=== PATIENT | female | born 1960 | race Two or more races ===

== ENCOUNTER 2019-10-16 07:00 | Inpatient (IN) | payer OTHER ==
[~2019-10-16] VITALS: Ht 152.4 cm; Wt 98.4 kg
[2019-11-15] MEDS ORDERED: SYNTHROID100 MCG ORAL (15:07)
[2019-11-15] MEDS ORDERED: CYTOMEL5 MCG ORAL (15:07)
[2019-11-15] MEDS ORDERED: AMLODIPINE BESYL5 MG ORAL (15:08)
[2019-11-15] MEDS ORDERED: OMEPRAZOLE40 M1 ORAL (15:12)
[2019-11-15] MEDS ORDERED: HYDROXYCHLOROQ200 M1 PO (15:13)
[2019-11-15] MEDS ORDERED: VITAMIN D325 GM MC (15:15)
[2019-11-16] VITALS (18 sets, daily range): BP systolic 83–136; BP diastolic 56–80
[2019-11-16] MEDS ORDERED: Succinylcholine 20mg/ml 10ml vial ONE (06:24)
[2019-11-16] MEDS ORDERED: Rocuronium Bromide 100mg/10ml Inj IV ONE (06:24)
[2019-11-16] MEDS ORDERED: Midazolam 2mg/2ml Inj ONE (06:25)
[2019-11-16] MEDS ORDERED: fentaNYL 100 mcg/2 mL IV ONE (06:25)
[2019-11-16] MEDS ORDERED: Lidocaine 1% MPF 10mg/ml 5ml ONE (06:28)
[2019-11-16] MEDS ORDERED: Phenylephrine 10mg/ml Vial ONE (06:41)
[2019-11-16] MEDS ORDERED: Vancomycin 1gm vial IVPB ONE (06:42)
[2019-11-16] MEDS ORDERED: Gelfoam Size TOPIC ONE (06:43)
[2019-11-16] MEDS ORDERED: Bacitracin 50000 Units Vial ONE (06:43)
[2019-11-16] MEDS ORDERED: Thrombin 5000 units TOPIC ONE (06:43)
[2019-11-16] MEDS ORDERED: Sterile Water Irrig 1000ml IRRIG ONE (07:00)
[2019-11-16] MEDS ORDERED: LR 1000ml ONE (07:00)
[2019-11-16] MEDS ORDERED: ceFAZolin sod 2 GM in NS 55 ML IVPB ONE (07:00)
[2019-11-16] MEDS ORDERED: NS Irrig 1000ml ONE (07:00)
[2019-11-16] MEDS ORDERED: propofoL 1,000mg/100ml IV ONE (07:00)
--- NOTE | 2019-11-16 07:20 | Pre-Procedure Note/Attestation ---
Pre-Procedure Note/Attestation Complete Prior to Procedure Planned Procedure: not applicable Procedure Narrative: Anterior cervical discectomy and fusion of C56 and C67 Indications for Procedure Pre-Operative Diagnosis: herniation C56,67 Attestation I attest that I discussed the nature of the procedure; its benefits; risks and complications; and alternatives (and the risks and benefits of such alternatives ), prior to the procedure, with the patient (or the patient's legal medical detail representative). I attest that, if there was a reasonable possibility of needing a blood transfusion, the patient (or the patient's legal medical detail representative) was given the [facility] standardized written summary, pursuant to the Gerardo Tiffani Blood Safety Act ([place] Health and Safety Code # 1645, as amended). I attest that I re-evaluated the patient just prior to the surgery and that there has been no change in the patient's H&P, except as documented below: Richardson Hidalgo MD Nov 16, 2019 07:20
--- NOTE | 2019-11-16 07:21 | Brief Operative Note ---
Immediate Post Operative Note Operative Note Chief Complaint: neck pain and radiculopathy Pre-op Diagnosis: herniation C56,67 Procedure: Anterior cervical discectomy and fusion of C56 and C67 Post-op Diagnosis: same as pre-op Findings: consistent w/pre-op dx studies Surgeon: Gwen Jig And Fixture Builder Apprentice: Marlo Anesthesiologist: CRISS Anesthesia: general Specimen: none Complications: none Condition: stable Fluids: IVF Estimated Blood Loss: minimal Drains: none Implant(s) used?: Yes - nuvasive interlock c sz6 x2, screws 12mmx6 Richardson Hidalgo MD Nov 16, 2019 07:21
[2019-11-16] MEDS ORDERED: Naloxone 0.4mg/ml Inj IVP PRN (07:30)
[2019-11-16] MEDS ORDERED: Metoclopramide 10mg/2ml Inj IVP PRN ×2 (07:30→08:45)
[2019-11-16] MEDS ORDERED: Morphine Sulfate 2mg/ml Inj(IV/IM USE ONLY) IV PRN (07:30)
[2019-11-16] MEDS ORDERED: Milk of Magnesia 30ml Ud ORAL PRN (07:30)
[2019-11-16] MEDS ORDERED: HYDROcodone/Acetamin 5/325 tab ORAL PRN (07:30)
[2019-11-16] MEDS ORDERED: Morphine Sulfate 4mg/ml Inj (IV USE ONLY) IV PRN ×2 (07:30)
[2019-11-16] MEDS ORDERED: Chloraseptic Spray 20mL Bottle ORAL PRN (07:30)
[2019-11-16] MEDS ORDERED: HYDROmorphone 1mg/ml Carpuject IVP PRN (07:30)
[2019-11-16] MEDS ORDERED: HYDROcodone/Acetamin 7.5/325 tab ORAL PRN (07:30)
[2019-11-16] MEDS ORDERED: ePHEDrine 50mg/ml Inj ONE (07:43)
[2019-11-16] MEDS ORDERED: Sodium Chloride 10ml vial INJ ONE ×2 (07:43→08:32)
[2019-11-16] MEDS ORDERED: Vancomycin 1 GM in NS 275 ML IVPB ONE (08:30)
[2019-11-16] MEDS ORDERED: Acetaminophen (Non formulary) 100 ML IV ONE (08:30)
[2019-11-16] MEDS ORDERED: Morphine Sulfate 10mg/ml Inj ONE (08:30)
[2019-11-16] MEDS ORDERED: LR 1000ml 1,000 ML IVLG SCH (08:40)
--- NOTE | 2019-11-16 08:40 | Anethesia Preoperative Eval ---
Anesthesia Pre-op PMH/ROS General Date of Evaluation: Nov 16, 2019 Time of Evaluation: 06:52 Anesthesiologist: Melvin ASA Score: ASA 3 Mallampati Score Class I : Soft palate, uvula, fauces, pillars visible Class II: Soft palate, uvula, fauces visible Class III: Soft palate, base of uvula visible Class IV: Only hard plate visible Mallampati Classification: Class II Surgeon: Gwen Diagnosis: Cervical radiculopathy Surgical Procedure: ACDF Anesthesia History: PONV Family History: no anesthesia problems Allergies: Coded Allergies: No Known Allergies (Unverified , 11/16/19) Medications: see eMAR Patient NPO?: Yes Past Medical History Cardiovascular: Reports: HTN; Denies: CAD, MO, valve dz, arrhythmia, other Pulmonary: Reports: LUCI; Denies: asthma, COPD, other Gastrointestinal/Genitourinary: Reports: GERD; Denies: CRI, ESRD, other Neurologic/Psychiatric: Reports: other - chronic pain; Denies: dementia, CVA, depression/anxiety, TIA Endocrine: Reports: hypothyroidism; Denies: DM, steroids, other HEENT: Denies: cataract (L), cataract (R), glaucoma, KEWEENAW (L), KEWEENAW (R), other Hematology/Immune: Denies: anemia, DVT, bleeding disorder, other Musculoskeletal/Integumentary: Reports: OA Other: obesity PMH Narrative: as above PSxH Narrative: Thyroidectomy Anesthesia Pre-op Phys. Exam Physician Exam Last Vital Signs Date Time Temp Pulse Resp B/P (MAP) Pulse Ox O2 Delivery O2 Flow Rate FiO2 11/16/19 06:08 97.2 66 18 136/75 (95) 97 11/16/19 06:08 Room Air Constitutional: NAD Neurologic: CN 2-12 intact Cardiovascular: RRR, no M/R/G Respiratory: CTA Gastrointestinal: other - obesity Airway Exam Mallampati Score: Class II MO: full Neck: stiff ROM: limited Teeth: missing Dentures: no upper, no lower Anesthesia Pre-op A/P Labs see chart Studies Pre-op Studies: EKG - NSR, CXR - WNL, echo - 55-60% Risk Assessment & Plan Assessment: ASA 3 Plan: GA with ETT neuromonitoring Status Change Before Surgery: No Pre-Antibiotics Drug: Vancomycin 1gr Given Within 1 Hr of Incision: Yes Time Given: 07:55 Eduar Charles MD Nov 16, 2019 08:40
[2019-11-16] MEDS ORDERED: DiphenhydrAMINE 50mg/ml Inj IVP PRN (08:45)
[2019-11-16] MEDS ORDERED: Ketorolac 30mg Inj IV PRN (08:45)
[2019-11-16] MEDS ORDERED: Hydromorphone 0.5mg/0.5ml inj IVP PRN (08:45)
[2019-11-16] MEDS ORDERED: Glycopyrrolate 0.2mg/ml 1ml Vial ONE (08:53)
[2019-11-16] MEDS ORDERED: Neostigmine 1mg/ml 10ml Inj ONE (08:53)
--- NOTE | 2019-11-16 10:01 | Immediate Post-Op Evaluation ---
Immediate Post-Op Evalulation Immediate Post-Op Evalulation Procedure: ACDF C5 toC7 Date of Evaluation: Nov 16, 2019 Time of Evaluation: 10:00 IV Fluids: 700 Blood Products: none Estimated Blood Loss: 50 Urinary Output: 150 Blood Pressure Systolic: 98 Blood Pressure Diastolic: 56 Pulse Rate: 72 Respiratory Rate: 20 O2 Sat by Pulse Oximetry: 99 Temperature (Fahrenheit): 97.6 Pain Score (1-10): 2 Nausea: No Vomiting: No Complications none Patient Status: reacts, patent, extubated, none Hydration Status: adequate Eduar Charles MD Nov 16, 2019 10:01
--- NOTE | 2019-11-16 11:30 | NUR ---
NURSE NOTES: patient was transferred from OR after surgery via hospital bed. sleeping. ADCF C5-6,6-[address] Hidalgo. no respiratory distress noted on room air. easily awake to name. IV on RAC 18. intact. belongings at OR. PT eval. dressing on neck with derma mak. no bleeding noted. VS 97/60,HR 82, RR18, T97.98. O2 95% on room air. bed in the lowest position and locked. call light within reach. will continue to provide plan of care. Addendum: 11/16/19 at 1258 by KYLE DE JESUS RN received report from JOSEPH Skelton,OR
[2019-11-16] MEDS: NS w/KCl 20mEq 1000ml 1,000 ML IV SCH ×2 (12:40→22:58)
--- NOTE | 2019-11-16 14:07 | NUR ---
PT EVALUATION NOTE Patient seen for initial evaluation and treatment initiated. Patient presents with pain and generalized weakness s/p cervical surgery. Patient instructed in cervical precautions and log roll technique for in/OOB. Patient required min assist to come to sitting position at the EOB. Patient c/o dizziness in sitting and unable to keep her eyes open. Attempted to stand however patient unable to stand due to c/o dizziness. Patient will benefit from skilled inpatient PT intervention to address balance and mobility for improved level of function with adherence to spinal precautions. Anticipate discharge home once medically cleared by MD. No DME needs identified at this time. Addendum: 11/16/19 at 1408 by JUAN CARLOS DURHAM PT Amended: Links added.
--- NOTE | 2019-11-16 14:09 | Diagnostic Imaging Report ---
XRAY C Spine 2-3v CLINICAL HISTORY: Neck pain. Cervical fusion. COMPARISON: None FINDINGS: Fluoroscopy independent procedure performed for cervical fusion. 26.6 seconds of fluoroscopy time utilized by the ordering physician. Total cumulative dose is 4.46 mGy and 0.43761 Gy.cm2. Total of 5 spot images are obtained . IMPRESSION: FLUOROSCOPY GUIDED PROCEDURE.
--- NOTE | 2019-11-16 15:59 | NUR ---
CASE MANAGEMENT: INITIAL REVIEW 59YR OLD FEMALE HERE FOR SCHEDULE SURGERY CC:NECK PAIN SI:NECK PAIN AND RADICULOPATHY . ANTERIOR CERVICAL HERNIATED 97.2 66 18 136/75 97% ON RA IS:IN SURGERY NOW ANTERIOR CERVICAL DISCECTOMY AND FUSION OF C56 AND C67 \: 3E MED SURG UNIT DCP: HOME WHEN STABLE PLAN: IV HYDRATE SCD'S MONITOR FOR FEVERS CONTROL PAIN ADVANCE DIET TOLERATED PT EVAL AND THERAPY RECOMMENDATION
--- NOTE | 2019-11-16 16:45 | Operative Note - Dictated ---
DATE OF OPERATION: 11/16/2019 SURGEON: Richardson Hidalgo MD, orthopedic spine surgeon. STOCK SUPERVISOR: ROSALVA Bagley. PREOPERATIVE DIAGNOSES: 1. Intractable neck pain. 2. Radiculopathy. 3. Herniation, C5-C6, C6-C7. 4. Neural foraminal stenosis C5-C6, C6-C7. 5. Stenosis. POSTOPERATIVE DIAGNOSES: 1. Intractable neck pain. 2. Radiculopathy. 3. Herniation, C5-C6, C6-C7. 4. Neural foraminal stenosis C5-C6, C6-C7. 5. Stenosis. PROCEDURE PERFORMED: 1. Anterior cervical discectomy and fusion of C5-C6 using Nuvasive Interlock Cage, size 6 a total of three 13 mm screws, with the insertion of 1 mL of allograft Osteocel bone. 2. Anterior cervical discectomy and fusion of C6-C7 using Nuvasive Interlock Cage, size 6 a total of three 13 mm screws, with the insertion of 1 mL of allograft Osteocel bone. 3. Motor evoked potential monitoring. 4. Somatosensory evoked potential monitoring. 5. Supervision and interpretation of fluoroscopy. 6. Use of intraoperative microscope. COMPLICATIONS: None. ANESTHESIA: General. ESTIMATED BLOOD LOSS: Less than 100 mL. INDICATIONS FOR SURGERY: This patient is a 59-year-old female who has a history of intractable neck pain, radiculopathy, herniation, C5-C6, C6-C7, neural foraminal stenosis C5-C6, C6-C7, stenosis. We tried a course of conservative management but despite this course there was still a significant component of persistent, recalcitrant neck pain and arm pain. The MRI demonstrated significant neural foraminal compromise secondary to disc herniations at C5-C6, C6-C7. We had a long discussion with Heide regarding the risks and benefits of surgery. Our discussion included but was not limited to nonoperative management, chiropractic management, another epidural steroid injection as well definitive management in the form of surgery. We recommended an anterior cervical discectomy and fusion of C5-C6, C6-C7 as final definitive management. We reviewed the risks and benefits of surgery with the patient. Our discussion included a comprehensive review of the clinical issues and the nature of the clinical decision. We reviewed the alternatives, including doing nothing. The patient elected to proceed accordingly with anterior cervical discectomy and fusion of C5-C6, C6-C7.We had a long discussion regarding the risks, alternatives and benefits of surgery. Our description of the risks included a discussion in person as well as a signed consent which detailed all pertinent risks from the procedure itself. Briefly, our discussion included but was not limited to infection, bleeding, pseudarthrosis, spinal cord injury, neurovascular injury, dural tear, CSF leak, neuropathy, paralysis, permanent weakness/drop foot/drop arm, paresthesias, blindness, palsy and weakness. The patient understood there may be a need for a revision surgery or additional procedures. Approach-related complications including dysphonia, dysphagia, blindness, permanent vocal cord and neural injury, hematoma, swallowing and breathing difficulty. Medical complications were reviewed including liver, kidney, shock, cardiopulmonary failure, anesthesia complications including , swelling, damage to the musculature, larynx/voice injury or loss, esophagus/throat, trachea, blood vessels and muscles/muscular sprain and lungs/pneumothorax during this surgical procedure; injury to deeper structures may be temporary or permanent. After this review of risks, the patient understood these and elected to proceed. A written and verbal consent was given. We discussed the pros and cons of all the alternatives. We discussed the uncertainties associated with the decision. Afterwards I assessed the patient's understanding and explored their preferences. All questions were answered and no guarantees were given. Medical clearance was obtained prior to surgery. INTRAOPERATIVE FINDINGS: At C5-C6: The disk itself was soft and spongy and of appropriate height. There was no desiccated aspects or crumbled nature to the disc itself. There were no anterior osteophytes or bone spurs anteriorly or posteriorly. The disk was not collapsed. Upon resection of the disk, I located a radial tear in the posterior longitudinal ligament posteriorly. This tear was probed with a micro-set 1-B curette. It gave rise to a herniated fragment of nucleus pulposus tissue, which was encroaching on the neural foramina right more than left sided. The radial tears were right and left sided; however, more prominent larger tear noted on the right side. There was significant neural foramen stenosis that was more prominent on the right side. At C6-C7: This disk was collapsed. There was an anterior osteophyte at C6-C7 on the endplate anteriorly. There were no posterior osteophytes at this level. The disk itself was desiccated and upon resection of the disk, I noted radial tears in the posterior longitudinal ligament on the right side. This was probed with a micro-set 1-B curette and it gave rise to a nucleus pulposus fragment, which was sitting in the neural foramina. There was neural foramen stenosis bilaterally predominantly right sided. DESCRIPTION OF PROCEDURE: Under the benefit of general endotracheal anesthesia and with the assistance of the entire operative team, the patient was moved from the rkersey onto the operative table in the supine position. The head was secured and carefully positioned appropriately. Bilateral arms were secured with Gelpads and foam and all bony prominences were padded. For the bilateral lower extremities SCD and KIARA hose were placed for DVT prophylaxis. A surgical timeout was called which corroborated our planned procedure of Anterior cervical discectomy and fusion of C5-C6, C6-C7. Preoperative antibiotics were administered within 30 minutes of the incision for antibiotic prophylaxis. Using lateral fluoroscopic radiography, the operative levels were delineated. Next the wound was prepped and draped with Chlorhexidine and sterile drapes. An incision was based on lateral fluoroscopy and we centered our incision at the C5-C6, C6-C7 interspace and next using a standard Rebolledo-Mobley anterior based approach the incision was taken down through the skin and subcutaneous tissues until the vertebral bodies and their corresponding disc spaces were visualized. A needle was placed into the interspace to confirm placement of the operative interspace and we performed the remainder of procedure under microscopic visualization. Next, using a bipolar and Bovie cautery to ensure meticulous hemostasis, the longus colli was mobilized bilaterally and retractors were placed deep to the longus colli bilaterally to address retraction. Next we turned our attention to the radical anterior discectomy. This was initially performed at C5-C6. First by using a 15 blade scalpel followed by narrow pituitaries and a micro-sect 5-B curette was used to denude the endplate of all cartilaginous tissue. Next using a Midas Arik AM8 drillbit the vertebral endplates were denuded in a [id number] and layer by layer fashion, and ultimately the posterior uncinate joints bilaterally and posterior osteophytic lips and margins causing central and lateral impingement were carefully denuded until visualization of the posterior longitudinal ligament was possible. An endplate preparation was performed in the exact same fashion using an intervertebral pathology laboratory aide, sequential distraction was obtained throughout the disc space. We saw a tear/rent in the PLL and this was carefully mobilized and dissected using a micro-set 1-B curet until we visualized a broad-based disc herniation with compression of the spinal cord as well as neural foramina which was right more than left sided. This neural foraminal compression was carefully resected using a Kerrison-1 and Kerrison-2 rongeurs until complete decompression of the spinal cord was visualized and complete decompression of the neural foramina and nerve root therein as well as the axilla and lateral margin of the nerve root was visualized and subsequently completely decompressed. The family was notified at one hour intervals throughout the procedure to provide for consistent updates. Next we turned our attention to the radical anterior discectomy at the C6-C7 level. First by using a 15 blade scalpel followed by narrow pituitaries and a micro-sect 5-B curette was used to denude the endplate of all cartilaginous tissue. Next using a Stalk[employer] Arik AM8 drillbit the vertebral endplates were denuded in a [id number] and layer by layer fashion, and ultimately the posterior uncinate joints bilaterally and posterior osteophytic lips and margins causing central and lateral impingement were carefully denuded until visualization of the posterior longitudinal ligament was possible. An endplate preparation was performed in the exact same fashion using an intervertebral pathology laboratory aide, sequential distraction was obtained throughout the disc space. We saw a tear/rent in the PLL and this was carefully mobilized and dissected using a micro-set 1-B curet until we visualized a broad-based disc herniation with compression of the spinal cord as well neural foramina which was right more than left sided. This neural foraminal compression was carefully resected using a Kerrison-1 and Kerrison-2 rongeurs until complete decompression of the spinal cord was visualized and complete decompression of the neural foramina and nerve root therein as well as the axilla and lateral margin of the nerve root was visualized and subsequently completely decompressed. We next turned our attention towards trialing our implant within the C56 disc space. We initially tried size 5 and afterwards size 6 trial from the Nuvasive Interlock Cage, size 6 a total of three 13 mm screws, with the insertion of 1 mL of allograft Osteocel bone at each level, which appeared to be appropriate under AP and lateral fluoroscopy as well as in terms of its height, depth, width and lack of toggle. The PEEK polyetheretherketone interbody cages were then both packed with allograft bone from Osteocel and local autograft bone matrix. Next these were then carefully advanced and secured into their intervertebral spaces under direct visualization and with supervision of AP and lateral fluoroscopic views. We next turned our attention towards plating. Plating was performed with Nuvasive Interlock Cage, size 6 a total of three 13 mm screws, with the insertion of 1 mL of allograft Osteocel bone. A total of three screws, size 13 mm in length were inserted and confirmed under AP and lateral fluoroscopy and confirmed to be in excellent position. This was then performed at the next level, C6-C7. Plating was performed with Nuvasive Interlock Cage, size 6 a total of three 13 mm screws, with the insertion of 1 mL of allograft Osteocel bone. A total of three screws, size 13 mm in length were inserted and confirmed under AP and lateral fluoroscopy and confirmed to be in excellent position. After a finger sweep we confirmed removal of all sponges. The retractor was removed and we next turned our attention to meticulous hemostasis with FloSeal and bipolar cautery. After the sponge and needle count was again found to be correct with our second count, we next turned our attention to closure. The wound was again copiously irrigated with antibiotic impregnated saline. Closure consisted of 4-0 clear nylon for the platysma, and 6-0 clear nylon for the superficial skin. Final skin closure and dressings consisted of Dermabond. Prior to final closure, a final radiograph was obtained which demonstrated the hardware is intact with excellent position throughout. The patient tolerated the procedure well. The patient was carefully extubated after the conclusion of surgery. We discussed the findings of the surgery with the family upon completion of the case. At this point the patient was transferred to the spine floor for further observation. Richardson Hidalgo M.D. DR: ARTEMIO JOB#: [id number] CC: EVELIO
--- NOTE | 2019-11-16 17:11 | NUR ---
NURSE NOTES: Spoke to regarding discharge and ok to discharge patient tomorrow 11/17/2019 after physical therapy. Order noted and carried out.
[2019-11-16] MEDS: Docusate Sod/Senna tab ORAL SCH (17:21)
[2019-11-16] MEDS: Docusate 100mg cap ORAL SCH (17:21)
[2019-11-16] MEDS: Vancomycin 1 GM in D5W 275 ML IVPB SCH (17:21)
--- NOTE | 2019-11-16 19:20 | NUR ---
NURSE NOTES: Received report from alek lujan. patient is on bed, with empty basin on the bedside. patient complaints of nausea. head of bed elevated. basin and napkins within easy reach. iv line on the right ac, running NS + 20 meq @ 100 ml/hr. on o2 cannula at 4 lpm. with intact dressing on the neck with derma mak. with minimal complaints of pain on the site. per patient " its tolerable and she doesn't need pain medicine at the moment". tai gaston states " the patient is for discharge tomorrow". bed locked and in lowest position. call light and light button within easy reach. will continue plan of care.
--- NOTE | 2019-11-16 19:20 | NUR ---
NURSE NOTES: Patient ambulated to bathroom and voided yellow urine. No complain of discomfort at this time. Will continue to monitor.
--- NOTE | 2019-11-16 19:29 | NUR ---
HAND-OFF: Report given to JOSEPH Mcgee.
--- NOTE | 2019-11-16 20:30 | NUR ---
NURSE NOTES: patient complaints of nausea. administered zofran as ordered.head of bed elevated. basin and napkins within easy reach. charge nurse made aware. Addendum: 11/17/19 at 0650 by Ashley Sosa RN patient had 1 episode vomiting; clear to light red in color. patient had a jello during dinner.
[2019-11-17] VITALS (17 sets, daily range): BP systolic 97–149; BP diastolic 52–79
--- NOTE | 2019-11-17 05:00 | NUR ---
NURSE NOTES: patient able to ambulate to the bathroom with assistance. no c/o dizziness or pain
[2019-11-17] MEDS: Vancomycin 1 GM in D5W 275 ML IVPB SCH (05:57)
--- NOTE | 2019-11-17 07:33 | NUR ---
NURSE NOTES: Report received from Arely RUIZ, rounds made. Patient resting in high fowlers position in bed, AOX4, calm. No distress on O2 4LNC, respirations even/unlabored, denies SOB. Anterior neck, surgical site, dermabond CDI, no redness/swelling noted, will change ice pack. Pain to surgical site/with swallowing 5/10, will medicate as ordered. Appetite fair, no NV. IV Vancomycin infusing to RAC, site slightly bloody surrounding insertion site, no leaking noted. Bilateral SCDs on, encouraged IS, ankle rotation. Neuros intact, CMS +, skin warm, wiggles, pulses palpable, no NT, hand grasps/pedal pushes equal/strong 5/5. Plan for PT evaluation and discharge today, patient aware. Call light in reach, bed in lowest position, will continue to monitor.
--- NOTE | 2019-11-17 07:38 | NUR ---
HAND-OFF: Report given to carmine barrios rn. patient is awake. not in any form of respiratory distress.plan of care endorsed
[2019-11-17] MEDS: Docusate 100mg cap ORAL SCH ×2 (08:21→17:14)
[2019-11-17] MEDS: HYDROcodone/Acetamin 7.5/325 tab ORAL PRN ×2 (08:21→15:32)
[2019-11-17] MEDS: Docusate Sod/Senna tab ORAL SCH ×2 (08:21→17:14)
[2019-11-17] MEDS: NS w/KCl 20mEq 1000ml 1,000 ML IV SCH ×2 (08:56→21:55)
--- NOTE | 2019-11-17 09:15 | 48 Hour Post Anesthesia Eval ---
Post Anesthesia Evaluation Procedure: ACDF C5 toC7 Date of Evaluation: Nov 17, 2019 Time of Evaluation: 09:14 Blood Pressure Systolic: 102 0: 59 Pulse Rate: 69 Respiratory Rate: 20 Temperature (Fahrenheit): 98.9 O2 Sat by Pulse Oximetry: 97 Airway: patent Nausea: No Vomiting: No Pain Intensity: 2 Hydration Status: adequate Cardiopulmonary Status: Stable Follow-up Care/Observations: 0 Post-Anesthesia Complications: 0 Follow-up care needed: N/A Abdon Jernigan MD Nov 17, 2019 09:15
--- NOTE | 2019-11-17 13:05 | NUR ---
PT NOTE Attempted to see patient for PT treatment. Per Bianca RUIZ patient c/o chest pain, PT treatment deferred at this time, will follow.
--- NOTE | 2019-11-17 15:15 | NUR ---
NURSE NOTES: Patient complains of chest pain 1-08/07, mid chest, squeezing like pain at times, comes and goes, also mild nausea that would subside on its own, as well as a frontal head aching pain 06/09. Vitals stable, T97.3 P60 RR18 BP 125/70, 96% on O2 3LNC. Patient alert, oriented, calm, sitting in chair. Dr. Hidalgo and Dr. Reich notified, orders for STAT EKG, results reported to Dr. Reich, order received for STAT Troponin. Denies need for Zofran at this time, provided lemon confederated salish soda. Patient updated, verbalized understanding. Will continue to monitor.
--- NOTE | 2019-11-17 16:02 | NUR ---
NURSE NOTES: Received orders from Dr. Reich to transfer patient to [facility]. Contreras LUGO notified. Will update patient as soon as bed available.
--- NOTE | 2019-11-17 16:30 | NUR ---
NURSE NOTES: Dr. Reich notified of Troponin critical value 2.982. Orders received for STAT EKG repeat, Nitro paste 1 inch BID, Metoprolol 12.5 BID. Patient and spouse (at bedside) updated, verbalized understanding. Addendum: 11/17/19 at 1807 by Bianca Mariscal RN Cardiology called for STAT repeat EKG.
[2019-11-17] MEDS ORDERED: Nitroglycerin 2% oint pkt TOPIC SCH (17:00)
[2019-11-17] MEDS ORDERED: Metoprolol Tartrate 12.5mg TAB ORAL SCH (17:00)
--- NOTE | 2019-11-17 17:00 | Discharge Summary ---
DATE OF ADMISSION: 11/16/2019 DATE OF DISCHARGE/TRANSFER: 11/18/2019 REASON FOR ADMISSION: Herniated nucleus pulposus. PROCEDURE PERFORMED DURING ADMISSION: Anterior cervical diskectomy and fusion. ICU Stay HOSPITAL COURSE/TREATMENT RENDERED: ICU management Therapy Cardiac consultation and treatment DISCHARGE PHYSICAL EXAM: 1. Patient was ambulating with and without the assistance of physical therapy. 2. Prior to discharge home incision was clean and dry with minimal swelling. 3. Follows commands. 4. Alert and oriented. 5. Hoffman discontinued, voiding. 6. Incentive spirometer at bedside. 7. IVF hep locked. MOTOR: Demonstrates expected postoperative bulk and tone. Moves biceps, triceps, and deltoid musculature on command. Moves hip flexors, quadriceps, tibialis anterior, EHL, gastrocsoleus musculature on command as well. TREATMENT RENDERED: 1. Daily nursing care. 2. Physical Therapy. 3. Occupational Therapy. 4. Intravenous medications. 5. Oral medications. 6. Daily postoperative examinations by Spine surgery team. 7. Cardiac consultation 8. Daily exam by her do all operator On Wednesday at approximately 2:03pm I was informed Heide complained of a mild chest pain. I was asked if we were clear to discharge her. I was operating at [facility] all day Wednesday when I was informed and I recommended they hold the discharge, obtain a STAT EKG and notify Dr. Lake to complete the chest pain workup. His workup noted elevated cardiac enzymes and Cardiology was consulted along with the administration of Beta Blockers. We decided to obtain a STAT Cervical MRI to rule out the presence of a hematoma prior to transfer to a Cardiac facility in the setting where blood thinners may be warranted. She was transferred to the ICU where I examined her at 945pm 11/17/19. CONDITION OF PATIENT ON DISCHARGE: The condition on discharge is guarded for transfer to the Cardiac team. DISCHARGE INSTRUCTIONS: Our specific instructions relating to physical activity, medications diet and follow-up care are detailed in our standard operative folder and were given to this patient prior to surgery. We will however summarize these briefly as stated below. Regarding physical activity we would like the patient to limit their flexion, extension and rotation. We also require a limitation on their bending lifting and twisting. All medication has been called in prior to surgery to their pharmacy of choice. They can resume their regular diet once tolerated. We would like them to shower and limit soaking the wound in a tub/Jacuzzi/the ocean for a period of one month or until the incision is completely healed. We will have them follow up in our office in three weeks time for their regularly scheduled appointment. They understand to call our office tomorrow to schedule the time for their three week followup appointment. The patient will notify us should they experience any increase in the severity of pain, redness/swelling/ or drainage from their incision. Richardson Hidalgo M.D. DR: ARTEMIO JOB#: [id number] CC: EVELIO
--- NOTE | 2019-11-17 17:35 | NUR ---
HAND-OFF: Report given to Benita HURST, patient stable. Addendum: 11/17/19 at 1812 by Bianca Mariscal RN Belongings reviewed with Benita, patient and spouse.
--- NOTE | 2019-11-17 17:35 | NUR ---
NURSE NOTES: Patient transferred to [facility] via bed on O2 3LNC, in stable condition. Patient AOx4, calm, spouse at bedside. HOB elevated. No complans of SOB at this time. Chest pain (ZENOBIA) 06/09. Nitro paste/patch applied to ZENOBIA prior to transfer, see eMAR. IVF reconnected upon transfer. Bilateral SCDs on. All belongings/extra IV bags/chart with prescription and CD and yellow packet sent with patient.
--- NOTE | 2019-11-17 17:45 | NUR ---
NURSE NOTES: RECEIVED PATIENT A/A/OX4, SPOUSE @ BEDSIDE. PERSONAL BELONGINGS NOTED. V/S TAKEN AND RECORDED. NO C/O PAIN/DISCOMFORT NOTED. HOB ELEVATED. O2 2L VIA NC. IV ACCESS PATENT AND INTACT, IVF INFUSING WELL IN RAC 18G. ABLE TOP UTILIZE IS W/A 10X. PATIENT UNABLE TO MOVE TO HAVE HER SURGICAL DRSG CHECK. PATIENT ABLE TO INTERACT AND ANSWERS QUESTIONS. PATIENT DOES NOT HAVE AN APPETITE FOR DINNER. KEPT BED IN THE LOWEST POSITION, SIDERAILS ARE UPX3. BRAKES AND SONJA ACTIVATED. CALL LIGHT WITHIN REACH. WILL CONT TO MONITOR.
--- NOTE | 2019-11-17 18:52 | Cardiology Progress Note ---
Assessment/Plan Assessment/Plan The patient has NSTEMI with troponin I of 2.9. She requires to be transferred to the higher level of care for cardiac catheterization. Objective Last 24 Hour Vital Signs Date Time Temp Pulse Resp B/P (MAP) Pulse Ox O2 Delivery O2 Flow Rate FiO2 11/17/19 17:45 97.5 65 18 133/69 (90) 97 11/17/19 17:15 97.3 68 20 142/79 (100) 96 11/17/19 17:15 68 142/79 11/17/19 17:15 142/79 11/17/19 16:00 97.7 58 20 124/69 (87) 97 11/17/19 13:09 97.3 60 18 125/70 (88) 96 11/17/19 12:00 98.2 61 18 114/66 (82) 98 11/17/19 09:15 69 20 97 11/17/19 09:00 Nasal Cannula 4.0 11/17/19 08:00 98.8 69 20 102/59 (73) 97 11/17/19 04:00 97.9 79 20 118/79 (92) 98 11/17/19 00:00 98.2 86 19 126/71 (89) 98 11/16/19 21:00 Nasal Cannula 4.0 11/16/19 20:00 97.9 84 19 117/80 (92) 98 Intake and Output 11/16/19 11/17/19 19:00 07:00 Intake Total 1583.3 ml 300 ml Output Total 200 ml Balance 1383.3 ml 300 ml IV Total 1583.3 ml 300 ml Output Urine Total 150 ml Estimated Blood Loss 50 ml # Voids 2 Laboratory Tests Test 11/17/19 15:45 Troponin I 2.982 ng/mL (0.000-0.056) Monroe Herbert MD Nov 17, 2019 18:52
[2019-11-17] MEDS ORDERED: Nitroglycerin Subl 0.4mg tab SL PRN ×2 (19:00→19:45)
--- NOTE | 2019-11-17 19:08 | NUR ---
HAND-OFF: Report given to naveen.
--- NOTE | 2019-11-17 19:10 | General Progress Note ---
Assessment/Plan Assessment/Plan: neck pain and radiculopathy herniation C56,67 Anterior cervical discectomy and fusion of C56 and C67 NSTEMI elevated troponin abnormal ECG hypertension PLAN cardiology noted appreciated nitrates and beta blockers consider transfer to cath facility if needed defer decision for anticoag to cardiology and spine guarded serial troponins and ECG impression, plan, and exam edited and reviewed in detail care discussed with RN Subjective Allergies: Coded Allergies: No Known Allergies (Unverified , 11/16/19) Subjective seen earlier called for chest pain had surgery yesterday troponin + ECG with noted new T wave inversions Objective Last 24 Hour Vital Signs Date Time Temp Pulse Resp B/P (MAP) Pulse Ox O2 Delivery O2 Flow Rate FiO2 11/17/19 17:45 97.5 65 18 133/69 (90) 97 11/17/19 17:15 97.3 68 20 142/79 (100) 96 11/17/19 17:15 68 142/79 11/17/19 17:15 142/79 11/17/19 16:00 97.7 58 20 124/69 (87) 97 11/17/19 13:09 97.3 60 18 125/70 (88) 96 11/17/19 12:00 98.2 61 18 114/66 (82) 98 11/17/19 09:15 69 20 97 11/17/19 09:00 Nasal Cannula 4.0 11/17/19 08:00 98.8 69 20 102/59 (73) 97 11/17/19 04:00 97.9 79 20 118/79 (92) 98 11/17/19 00:00 98.2 86 19 126/71 (89) 98 11/16/19 21:00 Nasal Cannula 4.0 11/16/19 20:00 97.9 84 19 117/80 (92) 98 Intake and Output 11/16/19 11/17/19 19:00 07:00 Intake Total 1583.3 ml 300 ml Output Total 200 ml Balance 1383.3 ml 300 ml IV Total 1583.3 ml 300 ml Output Urine Total 150 ml Estimated Blood Loss 50 ml # Voids 2 Laboratory Tests 11/17/19 15:45: Troponin I 2.982H Height (Feet): 5 Height (Inches): 0.00 Weight (Pounds): 204 Objective WDWN NAD clear breath sounds bilaterally without rhonchi or wheeze [id number] without MRG NABS nontender no HSM no CCE nonfocal Keegan Reich MD Nov 17, 2019 19:10
[2019-11-17] MEDS ORDERED: Gadavist 7.5mMol/7.5ml vial IV PRN ×2 (19:15→22:15)
--- NOTE | 2019-11-17 19:15 | NUR ---
NURSE NOTES: Report given by JOSEPH Joy- pt. to be transferred to ICU- STAT- transferred pt. to ICU Report given to JOSEPH Dominguez- pt. remains stable upon transfer and no signs of distress noted- aware to f/u with daughter as she is Korean speaking to let her know pt. has transferred.
--- NOTE | 2019-11-17 19:30 | NUR ---
NURSE NOTES: Received report from Capo RUIZ. patient from telemetry transferred to ICU via Yasmin bed accompanied by [address] Herbert with order to transfer pt to ICU pt has NSTEMI with troponin of 2.9, pt requires higher level of care for cardiac catheterization. Patient awake, alert oriented x4, able to verbalize needs in Malian and Sudanese. On 2L oxygen via N/C satting 98%. HOB elevated. dressing intact on tight neck with Dermabond dressing no bleeding.S/P anterior cervical spine diskectomy and fusion. Instructed patient to avoid touching the surgery site to prevent from opening or infection patient with good understanding. Denies any chest pain at this time. complained of 3/10 right neck pain but refused pain medication, ice pack helps at this time. SCD on bilateral leg intact. IV site on right AC intact infusing NS with KCL 20mEq at 100cc/hr. bed alarm on. bed lock and in low position. Negative x1 for COVID 19. bed alarm on. bed locked and in low position. will continue plan of care.
--- NOTE | 2019-11-17 19:55 | Cardiology Progress Note ---
Assessment/Plan Assessment/Plan I spoke with Dr. Mcnulty glycerin operator mission analyst at [facility] with an attempt to have cardiac cath done for this patient. Dr. Mcnulty states that in face of cervical diskectomy he would not proceed with the cardiac cath and would wait until later ( ? number of days at neurosurgery discretion) as long as the patient is hemodynamically stable. The patient will however remains to be guarded and will be transferred to [facility] once bed is available for close hemodynamic monitoring and in case emergency cath is required. I will, hence, send the patient to the ICU of this facility and will monitor closely. Trop I and ECG will be taken q 8 hours, no ASA or heparin/ lovenox at this time due to increased risk of bleeding into the cervical spine. Nitroglycerine tab as needed for chest pain. Objective Last 24 Hour Vital Signs Date Time Temp Pulse Resp B/P (MAP) Pulse Ox O2 Delivery O2 Flow Rate FiO2 11/17/19 17:45 97.5 65 18 133/69 (90) 97 11/17/19 17:15 97.3 68 20 142/79 (100) 96 11/17/19 17:15 68 142/79 11/17/19 17:15 142/79 11/17/19 16:00 97.7 58 20 124/69 (87) 97 11/17/19 13:09 97.3 60 18 125/70 (88) 96 11/17/19 12:00 98.2 61 18 114/66 (82) 98 11/17/19 09:15 69 20 97 11/17/19 09:00 Nasal Cannula 4.0 11/17/19 08:00 98.8 69 20 102/59 (73) 97 11/17/19 04:00 97.9 79 20 118/79 (92) 98 11/17/19 00:00 98.2 86 19 126/71 (89) 98 11/16/19 21:00 Nasal Cannula 4.0 11/16/19 20:00 97.9 84 19 117/80 (92) 98 Intake and Output 11/16/19 11/17/19 19:00 07:00 Intake Total 1583.3 ml 300 ml Output Total 200 ml Balance 1383.3 ml 300 ml IV Total 1583.3 ml 300 ml Output Urine Total 150 ml Estimated Blood Loss 50 ml # Voids 2 Laboratory Tests Test 11/17/19 15:45 11/17/19 19:00 Troponin I 2.982 ng/mL (0.000-0.056) 2.706 ng/mL (0.000-0.056) Monroe Herbert MD Nov 17, 2019 19:55
[2019-11-17] MEDS ORDERED: Morphine Sulfate 2mg/ml Inj(IV/IM USE ONLY) IV PRN (20:00)
[2019-11-17] MEDS ORDERED: Naloxone 0.4mg/ml Inj IVP PRN (20:00)
[2019-11-17] MEDS ORDERED: Milk of Magnesia 30ml Ud ORAL PRN (20:00)
[2019-11-17] MEDS ORDERED: Metoclopramide 10mg/2ml Inj IVP PRN (20:00)
[2019-11-17] MEDS ORDERED: Metoprolol Tartrate 5mg/5ml Inj IVP SCH (20:00)
[2019-11-17] MEDS ORDERED: Morphine Sulfate 4mg/ml Inj (IV USE ONLY) IV PRN ×2 (20:00)
[2019-11-17] MEDS ORDERED: Chloraseptic Spray 20mL Bottle ORAL PRN (20:00)
[2019-11-17] MEDS ORDERED: HYDROmorphone 1mg/ml Carpuject IVP PRN (20:00)
[2019-11-17] MEDS ORDERED: HYDROcodone/Acetamin 5/325 tab ORAL PRN (20:00)
[2019-11-17] MEDS ORDERED: HYDROcodone/Acetamin 7.5/325 tab ORAL PRN (20:00)
--- NOTE | 2019-11-17 20:00 | NUR ---
NURSE NOTES: Seen and examined by Dr Herbert with new order noted and carried out. Per Dr. Herbert cancel the MRI, plan to transfer Patient to [facility]. Metoprolol, EKG at 2200 and Troponin Q8HR. Daughter Mireille Mcnamara and patient aware. will closely monitor patient.
[2019-11-17] MEDS: Atorvastatin 80mg tab ORAL SCH (20:26)
[2019-11-17] MEDS ORDERED: Atorvastatin 80mg tab ORAL SCH (21:00)
--- NOTE | 2019-11-17 21:16 | NUR ---
NURSE NOTES: patient bp 149/63 HR 63 when I scanned the metoprolol po and IVP but before I gave the medication BP 119/61 HR 58 patient asymptomatic. Held medication and informed Dr Anderson per Dr Herbert hold medication for now. Charge nurse aware.
--- NOTE | 2019-11-17 22:10 | NUR ---
NURSE NOTES: dr hope made aware that dr young does not want patient to go to MRI at this time due to elevated troponin and also some chest pain,suggested to him to call dr hair himself and discuss the matter with him
--- NOTE | 2019-11-17 22:20 | NUR ---
NURSE NOTES: Seen and examined by Dr. Hidalgo. MD informed that the MRI was cancelled by Dr. Herbert per Dr. Hidalgo he will order stat MRI with/without contrast to R/O hematoma prior to starting blood thinner. Dr. Herbert made aware that Dr. Hidalgo wants MRI now but per Dr. Herbert he already cancelled the MRI because pt don't need it at this time. Charge nurse aware.
--- NOTE | 2019-11-17 22:20 | NUR ---
NURSE NOTES: dr hope called in and cancelled the MRI for ba
[2019-11-18] VITALS (30 sets, daily range): BP systolic 93–149; BP diastolic 52–88
--- NOTE | 2019-11-18 | NUR ---
NURSE NOTES: Patient in bed sleeping comfortably, easily arousable to verbal and tactile stimuli. On 2L oxygen via N/C satting 98%. Sr on school bus monitor HR 65. no s/s of acute distress noted. Frequent visual checks continued. Purewick connected to suctioned. call light within easy reach. will continue plan of care.
--- NOTE | 2019-11-18 02:00 | NUR ---
NURSE NOTES: Patient in bed sleeping comfortably, easily arousable to verbal and tactile stimuli. On 2L oxygen via N/C satting 98%. SB on case monitor HR 57. no s/s of acute distress noted. Frequent visual checks continued. Purewick connected to suctioned. call light within easy reach. will continue plan of care.
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
[2019-11-18] MEDS: NS w/KCl 20mEq 1000ml 1,000 ML IV SCH ×2 (04:06→16:54)
[2019-11-18] MEDS: HYDROcodone/Acetamin 7.5/325 tab ORAL PRN ×3 (04:06→20:14)
--- NOTE | 2019-11-18 04:06 | NUR ---
NURSE NOTES: patient complain of 4/10 right anterior neck, ice applied not effective. [place] 7.5mg 1 tab po given able to swallow with water. no coughing. will rechecked patient.
--- NOTE | 2019-11-18 04:36 | NUR ---
NURSE NOTES: patient denies nay pain or discomfort 0/10.
--- NOTE | 2019-11-18 05:30 | NUR ---
NURSE NOTES: Bed bath given. patient able to hold on the side rails when turning and repositioning. Denies any pain or discomfort. drank 100cc water. SB on court recording monitor 51. denies chest pain. On 2L oxygen via N/C satting 98%. HOB elevated. SCD on bilateral legs. call light within easy reach.
--- NOTE | 2019-11-18 07:31 | NUR ---
HAND-OFF: Report given to Marvin RUIZ.
--- NOTE | 2019-11-18 07:32 | NUR ---
NURSE NOTES: Report received from JOSEPH Dominguez. Pt is awake, alert and oriented x3. Sinus yoko on monitor and storage bin tender 46, [address] Herbert is aware as per slot shift manager. On N/C 2L. O2 sat 98-99%. Patient denies pain or discomfort. Pure wick draining yellow urine. IV to right AC G18 patent and asymptomatic. NS with 20meq KCL is running at 100cc/hr. Bed in lowest position. Side rails up x3. Call light within reach. Will continue to monitor. Addendum: 11/18/19 at 1814 by AISSATOU ABURTO RN RN NURSE NOTES: Report received from JOSEPH Dominguez. Pt is awake, alert and oriented x3. Sinus yoko on monitor and storage bin tender 46, [address] Herbert is aware as per slot shift manager. On N/C 2L. O2 sat 98-99%. Patient denies pain or discomfort. Pure wick draining yellow urine. IV to right AC G18 patent and asymptomatic. NS with 20meq KCL is running at 100cc/hr. Surgical dressing on right neck dry and intact. No bleeding noted. Bed in lowest position. Side rails up x3. Call light within reach. Will continue to monitor.
[2019-11-18] MEDS: Docusate Sod/Senna tab ORAL SCH ×3 (08:46→18:00)
[2019-11-18] MEDS: Docusate 100mg cap ORAL SCH ×3 (08:47→18:00)
--- NOTE | 2019-11-18 08:53 | NUR ---
PT Note Patient has been transferred to ICU. Will hold physical therapy. Will need a new order to start physical therapy when patient is medically stable.
[2019-11-18] MEDS: Nitroglycerin 2% oint pkt TOPIC SCH ×2 (08:56→17:10)
--- NOTE | 2019-11-18 08:56 | NUR ---
NURSE NOTES: Nitroglycerin patchy and Metoprolol held since HR is low. Lowest 46-47 to 50's on coding file clerk. Will continue to monitor.
--- NOTE | 2019-11-18 10:16 | NUR ---
NURSE NOTES: Patient is doing incentive spirometer in bed. Instructions given. Patient did it 10 times. It goes up to 1200. New IV inserted to right wrist. Patient tolerated well.
--- NOTE | 2019-11-18 10:37 | NUR ---
NURSE NOTES: Dr Hidalgo called ICU. Updated him with patient's current condition and notified him that Dr Herbert did not clear patient do gown for MRI. No new orders.
--- NOTE | 2019-11-18 10:52 | General Progress Note ---
Assessment/Plan Assessment/Plan: neck pain and radiculopathy herniation C56,67 Anterior cervical discectomy and fusion of C56 and C67 NSTEMI elevated troponin abnormal ECG hypertension PLAN cardiology noted appreciate assistance nitrates and beta blockers no cath per cardiology anticoag when safe serial troponins and ECG medications/laboratory data/nursing notes/ICU care reviewed in detail note reviewed and edited care discussed with RN and RT ICU time spent >40 minutes Subjective Allergies: Coded Allergies: No Known Allergies (Unverified , 11/16/19) Subjective stable overnight troponin + trending down ECG noted Objective Last 24 Hour Vital Signs Date Time Temp Pulse Resp B/P (MAP) Pulse Ox O2 Delivery O2 Flow Rate FiO2 11/18/19 10:00 68 17 120/65 (83) 98 11/18/19 09:00 64 16 134/61 (85) 99 11/18/19 08:56 60 129/77 11/18/19 08:21 49 11/18/19 08:00 98.0 50 14 129/77 (94) 100 11/18/19 08:00 Nasal Cannula 2.0 11/18/19 07:00 51 12 110/67 (81) 99 11/18/19 06:00 97.9 54 14 107/66 (80) 98 11/18/19 05:00 57 14 117/69 (85) 96 11/18/19 04:36 97.5 11/18/19 04:00 Nasal Cannula 2.0 11/18/19 04:00 97.8 53 14 106/63 (77) 98 11/18/19 03:30 59 15 96/59 (71) 99 11/18/19 03:15 53 12 100/55 (70) 98 11/18/19 03:00 52 11 98/58 (71) 98 11/18/19 02:45 54 12 102/57 (72) 98 11/18/19 02:30 54 12 99/57 (71) 98 11/18/19 02:15 53 13 103/58 (73) 98 11/18/19 02:00 58 14 100/55 (70) 97 11/18/19 01:00 59 12 93/52 (66) 97 11/18/19 00:30 58 13 93/52 (66) 98 11/18/19 00:00 Nasal Cannula 2.0 11/18/19 00:00 97.5 65 13 100/53 (69) 98 11/17/19 23:30 58 13 99/52 (68) 98 11/17/19 23:00 58 13 97/56 (70) 98 11/17/19 22:30 57 14 111/66 (81) 98 11/17/19 22:00 59 16 125/70 (88) 98 11/17/19 21:30 61 16 117/57 (77) 97 11/17/19 21:00 57 14 117/57 (77) 99 11/17/19 20:49 58 119/61 11/17/19 20:49 58 119/61 11/17/19 20:30 59 15 132/69 (90) 98 11/17/19 20:00 Nasal Cannula 2.0 11/17/19 20:00 76 19 149/79 (102) 99 11/17/19 19:30 97.4 76 19 149/79 (102) 99 11/17/19 17:45 97.5 65 18 133/69 (90) 97 11/17/19 17:15 97.3 68 20 142/79 (100) 96 11/17/19 17:15 68 142/79 11/17/19 17:15 142/79 11/17/19 16:00 97.7 58 20 124/69 (87) 97 11/17/19 13:09 97.3 60 18 125/70 (88) 96 11/17/19 12:00 98.2 61 18 114/66 (82) 98 Intake and Output 11/17/19 11/18/19 19:00 07:00 Intake Total 1200 ml 1108 ml Output Total 600 ml Balance 1200 ml 508 ml Intake Oral 500 ml 300 ml IV Total 700 ml 808 ml Output Urine Total 600 ml Laboratory Tests 11/17/19 15:45: Troponin I 2.982H 11/17/19 19:00: Troponin I 2.706H 11/18/19 03:50: Troponin I 2.124H Height (Feet): 5 Height (Inches): 0.00 Weight (Pounds): 218 Objective WDWN NAD clear breath sounds bilaterally without rhonchi or wheeze [id number] without MRG NABS nontender no HSM no CCE nonfocal Keegan Reich MD Nov 18, 2019 10:52
--- NOTE | 2019-11-18 11:07 | NUR ---
CASE MANAGEMENT:Transfer update CM spoke to Richard from [facility] T: [phone] Patient on list to be accepted but has not financially cleared Financial department closed for the weekend and can not verify insurance Patient can not be transferred to [facility] ILANA made Dr Herbert aware and guest house manager at [facility] Addendum: 11/18/19 at 1129 by CHARLINE GUADARRAMA LVN CM reading updated note from Dr Mckeon: no cath per cardiology
--- NOTE | 2019-11-18 11:13 | NUR ---
NURSE NOTES: Dr Reich here to see the patient. Updated him with patient's current condition. Order for EKG received, noted, and carried out.
--- NOTE | 2019-11-18 11:59 | NUR ---
NURSE NOTES: Daughter and mother here to see the patient. Consent for MRI with/without contrast received from the patient. Cardiac clearance for MRI received from Dr Herbert. Called Radiology for MRI order. They will call on-call lab support technician. Awaiting call back. Also Dr Herbert is holding transfer to [facility] for cardiac cath at this time. Confirmed with shelter case manager regarding cancellation of transfer.
[2019-11-18 12:51] LABS: ANION GAP 9 mmol/L (5-15); BLOOD UREA NITROGEN 15 mg/dL (7-18); CALCIUM 8.3 MG/DL (8.5-10.1); CARBON DIOXIDE 25 MMOL/L (21-32); CHLORIDE 109 MMOL/L (98-107); CREATININE 0.8 MG/DL (0.55-1.30); POTASSIUM 3.9 MMOL/L (3.5-5.1); SODIUM 143 MMOL/L (136-145)
[2019-11-18 13:03] LABS: BASOPHILS % (AUTO) 0.6 % (0.0-2.0); EOSINOPHILS % (AUTO) 0.3 % (0.0-3.0); HEMATOCRIT 39.4 % (37.0-47.0); HEMOGLOBIN 12.9 G/DL (12.0-16.0); LYMPHOCYTES % (AUTO) 20.5 % (20.0-45.0); MEAN CORPUSCULAR VOLUME 94 FL (80-99); MONOCYTES % (AUTO) 5.5 % (1.0-10.0); NEUTROPHILS % (AUTO) 73.1 % (45.0-75.0); PLATELET COUNT 203 K/UL (150-450); RED BLOOD COUNT 4.21 M/UL (4.20-5.40); RED CELL DISTRIBUTION WIDTH 12.6 % (11.6-14.8)
--- NOTE | 2019-11-18 14:00 | NUR ---
NURSE NOTES: Pt off the unit for MRI of the C spine.
--- NOTE | 2019-11-18 15:09 | NUR ---
MRI CERVICAL W/WO COMPLETED.
--- NOTE | 2019-11-18 15:26 | NUR ---
NURSE NOTES: [place] 7.5/325 1 tab given for back neck pain after same positioning from MRI. Dr Herbert here to see the patient. Order for 2Decho received and noted. Will carry out the order.
--- NOTE | 2019-11-18 15:33 | Diagnostic Imaging Report ---
History: HNP Exam: MR C SPINE W/WO Contrast Comparison: FINDINGS: Motion artifact. Status post anterior cervical disc fusion/intervertebral disc spacers C5-C7 appears within limits. No evidence of abnormal cord signal, cord compression or epidural hematoma. No prevertebral fluid collection identified. No evidence of significant- appearing foraminal narrowing identified. No unexpected postcontrast enhancement identified. IMPRESSION: Motion artifact. Status post anterior cervical disc fusion/intervertebral disc spacers C5-C7 appears within limits. No evidence of abnormal cord signal, cord compression or epidural hematoma.
--- NOTE | 2019-11-18 15:52 | Cardiology Progress Note ---
Assessment/Plan Assessment/Plan 1. NSTEMI, likely involving LCx territory given new deep symmetrical TW inversion, on no antiplatelet or anticoag therapy due to cervical spine diskectomy. Currently stable, CP free, continue to monitor hemodynamics, trop peaked at 2.9 and now downtrending. Will cath when it is safe to do so from neurosurgical standpoint. 2D echo is ordered. 2. s/p anterior cervical spine diskectomy and fusion. Subjective Subjective Sinus rhythm at rate of 72. Objective Last 24 Hour Vital Signs Date Time Temp Pulse Resp B/P (MAP) Pulse Ox O2 Delivery O2 Flow Rate FiO2 11/18/19 15:19 72 20 122/72 (89) 98 11/18/19 15:15 98.6 68 20 122/72 (89) 99 11/18/19 13:00 76 18 133/81 (98) 100 11/18/19 12:00 98.5 57 18 123/81 (95) 100 11/18/19 12:00 Nasal Cannula 2.0 11/18/19 11:28 62 11/18/19 11:00 62 16 120/65 (83) 98 11/18/19 10:00 68 17 120/65 (83) 98 11/18/19 09:00 64 16 134/61 (85) 99 11/18/19 08:56 60 129/77 11/18/19 08:21 49 11/18/19 08:00 98.0 50 14 129/77 (94) 100 11/18/19 08:00 Nasal Cannula 2.0 11/18/19 07:00 51 12 110/67 (81) 99 11/18/19 06:00 97.9 54 14 107/66 (80) 98 11/18/19 05:00 57 14 117/69 (85) 96 11/18/19 04:36 97.5 11/18/19 04:00 Nasal Cannula 2.0 11/18/19 04:00 97.8 53 14 106/63 (77) 98 11/18/19 03:30 59 15 96/59 (71) 99 11/18/19 03:15 53 12 100/55 (70) 98 11/18/19 03:00 52 11 98/58 (71) 98 11/18/19 02:45 54 12 102/57 (72) 98 6/20/20 02:30 54 12 99/57 (71) 98 11/18/19 02:15 53 13 103/58 (73) 98 11/18/19 02:00 58 14 100/55 (70) 97 11/18/19 01:00 59 12 93/52 (66) 97 11/18/19 00:30 58 13 93/52 (66) 98 11/18/19 00:00 Nasal Cannula 2.0 11/18/19 00:00 97.5 65 13 100/53 (69) 98 11/17/19 23:30 58 13 99/52 (68) 98 11/17/19 23:00 58 13 97/56 (70) 98 11/17/19 22:30 57 14 111/66 (81) 98 11/17/19 22:00 59 16 125/70 (88) 98 11/17/19 21:30 61 16 117/57 (77) 97 11/17/19 21:00 57 14 117/57 (77) 99 11/17/19 20:49 58 119/61 11/17/19 20:49 58 119/61 11/17/19 20:30 59 15 132/69 (90) 98 11/17/19 20:00 Nasal Cannula 2.0 11/17/19 20:00 76 19 149/79 (102) 99 11/17/19 19:30 97.4 76 19 149/79 (102) 99 11/17/19 17:45 97.5 65 18 133/69 (90) 97 11/17/19 17:15 97.3 68 20 142/79 (100) 96 11/17/19 17:15 68 142/79 11/17/19 17:15 142/79 11/17/19 16:00 97.7 58 20 124/69 (87) 97 Intake and Output 11/17/19 11/18/19 19:00 07:00 Intake Total 1200 ml 1108 ml Output Total 600 ml Balance 1200 ml 508 ml Intake Oral 500 ml 300 ml IV Total 700 ml 808 ml Output Urine Total 600 ml Laboratory Tests Test 11/17/19 19:00 11/18/19 03:50 11/18/19 12:15 Troponin I 2.706 ng/mL (0.000-0.056) 2.124 ng/mL (0.000-0.056) 1.870 ng/mL (0.000-0.056) White Blood Count 9.0 K/UL (4.8-10.8) Red Blood Count 4.21 M/UL (4.20-5.40) Hemoglobin 12.9 G/DL (12.0-16.0) Hematocrit 39.4 % (37.0-47.0) Mean Corpuscular Volume 94 FL (80-99) Mean Corpuscular Hemoglobin 30.6 PG (27.0-31.0) Mean Corpuscular Hemoglobin Concent 32.7 G/DL (32.0-36.0) Red Cell Distribution Width 12.6 % (11.6-14.8) Platelet Count 203 K/UL (150-450) Mean Platelet Volume 6.8 FL (6.5-10.1) Neutrophils (%) (Auto) 73.1 % (45.0-75.0) Lymphocytes (%) (Auto) 20.5 % (20.0-45.0) Monocytes (%) (Auto) 5.5 % (1.0-10.0) Eosinophils (%) (Auto) 0.3 % (0.0-3.0) Basophils (%) (Auto) 0.6 % (0.0-2.0) Sodium Level 143 MMOL/L (136-145) Potassium Level 3.9 MMOL/L (3.5-5.1) Chloride Level 109 MMOL/L (98-107) H Carbon Dioxide Level 25 MMOL/L (21-32) Anion Gap 9 mmol/L (5-15) Blood Urea Nitrogen 15 mg/dL (7-18) Creatinine 0.8 MG/DL (0.55-1.30) Estimat Glomerular Filtration Rate > 60 mL/min (>60) Glucose Level 98 MG/DL (74-106) Calcium Level 8.3 MG/DL (8.5-10.1) L Microbiology Date/Time Source Procedure Growth Status 11/16/19 06:30 Nasal Nares MRSA Culture - Final NO METHICILLIN RESISTANT STAPH AUREUS... Complete Objective HEENT: Atraumatic and normocephalic. Anicteric. Pupils are equal, round, and reactive to light and accommodation. Extraocular muscles intact. NECK: JVP less than 5 cm. No carotid bruit. Carotid upstrokes 2+ bilaterally. CARDIOVASCULAR: Normal S1 and S2. Bradycardic. Regular rate and rhythm. No murmurs, gallops, or rubs. PMI is at fourth intercostal space in the midclavicular line. LUNGS: Clear to auscultation bilaterally. ABDOMEN: Soft, nontender, and nondistended. No hepatosplenomegaly. Positive bowel sounds. EXTREMITIES: No evidence of edema, clubbing, or cyanosis. Monroe Herbert MD Nov 18, 2019 15:52
--- NOTE | 2019-11-18 16:16 | NUR ---
NURSE NOTES: Notified Dr Hidalgo regarding the result of MRI of C-spine. Also notified him that Plan to transfer patient to [facility] was held at this time by Dr Herbert. No new orders.
--- NOTE | 2019-11-18 17:36 | NUR ---
CASE MANAGEMENT: REVIEW 11/17/19 SI:NSTEMI S/P ANTERIOR CERVICAL DISCECTOMY AND FUSION OF C56 AND C67 NECK PAIN AND RADICULOPATHY . ANTERIOR CERVICAL HERNIATED 98.8 69 20 102/59 97% ON 4L NC TROP TREND-2.982 2.706 2.124 1.870 IS:IV KCL/NS @!00ML/HR LIPITOR PO QHS NORCO PO Q3HR/PRN \: 3E MED SURG UNIT DCP: HOME WHEN STABLE CASE MANAGEMENT: REVIEW 11/18/19 SI:NSTEMI S/P ANTERIOR CERVICAL DISCECTOMY AND FUSION OF C56 AND C67 NECK PAIN AND RADICULOPATHY . ANTERIOR CERVICAL HERNIATED 98.5 57 18 123/81 100% ON 2L NC IS:IV KCL/NS @100ML/HR LIPITOR PO QHS NORCO PO Q3HR/PRN MRI C Spine w/wo Contrast-Motion artifact. Status post anterior cervical disc fusion/intervertebral disc spacers C5-C7 appears within limits. No evidence of abnormal cord signal, cord compression or epidural hematoma. \: 3E MED SURG UNIT DCP: HOME WHEN STABLE PLAN: 2D ECHO
--- NOTE | 2019-11-18 18:13 | NUR ---
NURSE NOTES: Patient is resting in bed. 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 Patient denies pain or discomfort. Will continue to monitor.
[2019-11-18] MEDS ORDERED: Gadavist 7.5mMol/7.5ml vial IV PRN (19:15)
--- NOTE | 2019-11-18 19:18 | NUR ---
HAND-OFF: Report given to JOSEPH Dominguez.
--- NOTE | 2019-11-18 19:30 | NUR ---
NURSE NOTES: Received report from Marvin, Patient awake, alert oriented x4, able to verbalize needs in Italian and Bangladeshi. On 2L oxygen via N/C satting 98%. HOB elevated. dressing intact on right neck with Dermabond dressing no bleeding.S/P anterior cervical spine diskectomy and fusion. Instructed patient to avoid touching the surgery site to prevent from opening or infection patient with good understanding. Denies any chest pain at this time. SCD on bilateral leg intact. IV site on right AC intact infusing NS with KCL 20mEq at 100cc/hr. bed alarm on. bed lock and in low position. Negative x1 for COVID 19. bed alarm on. bed locked and in low position. will continue plan of care.
[2019-11-18] MEDS: Atorvastatin 80mg tab ORAL SCH (20:13)
--- NOTE | 2019-11-18 20:15 | NUR ---
NURSE NOTES: patient complain of 4/10 right anterior neck, ice applied not effective. Brothers 7.5mg 1 tab po given able to swallow with water. no coughing. will rechecked patient.
--- NOTE | 2019-11-18 22:00 | NUR ---
NURSE NOTES: Patient in bed sleeping comfortably. SB on shelter monitor HR 58. Denies any pain or discomfort. Call light within easy reach. No s/s of acute distress noted. will continue plan of care.
[2019-11-19] VITALS (14 sets, daily range): BP systolic 99–160; BP diastolic 61–92
--- NOTE | 2019-11-19 | NUR ---
NURSE NOTES: Patient able to hold on the side rails during turning and repositioning On 2L oxygen vioa N/C satting 98%. HOB elevated. placed a roll towel under the patient neck per patient she feels better. SB on quality assurance monitor HR 56. Denies any pain or discomfort. Call light within easy reach. No s/s of acute distress noted. will continue plan of care.
[2019-11-19] MEDS: NS w/KCl 20mEq 1000ml 1,000 ML IV SCH ×2 (01:47→16:53)
--- NOTE | 2019-11-19 02:00 | NUR ---
NURSE NOTES: Patient in bed sleeping comfortably. SB on satellite project site monitor HR 48-59. Denies any pain or discomfort. Call light within easy reach. No s/s of acute distress noted. Purewick intact connected to suction. will continue plan of care.
[2019-11-19] MEDS: HYDROcodone/Acetamin 7.5/325 tab ORAL PRN (04:25)
--- NOTE | 2019-11-19 06:00 | NUR ---
NURSE NOTES: Bed bath given tolerated well. No s/s of acute distress noted. No fever. no n/v. skin warm and dry to touch. Call light within easy reach. Patient denies any chest pain. will continue plan of care.
--- NOTE | 2019-11-19 07:05 | NUR ---
HAND-OFF: Report given to Svetlana Carrasco RN.
--- NOTE | 2019-11-19 07:06 | NUR ---
NURSE NOTES: Report received from JOSEPH Dominguez. Pt is awake, alert and oriented x3. Sinus yoko on home care administrator 50's. On N/C 2L. O2 sat 100%. Patient denies pain or discomfort. Pure wick draining yellow urine. IV to right wrist and hand G22 patent and asymptomatic. NS with 20meq KCL is running at 100cc/hr. Surgical dressing on right neck dry and intact. No bleeding noted. Bed in lowest position. Side rails up x3. Call light within reach. Will continue to monitor.
--- NOTE | 2019-11-19 07:54 | NUR ---
NURSE NOTES: 2Decho is being done at bedside.
[2019-11-19] MEDS: Docusate Sod/Senna tab ORAL SCH ×2 (08:40→18:05)
[2019-11-19] MEDS: Docusate 100mg cap ORAL SCH ×2 (08:40→18:05)
[2019-11-19] MEDS: Nitroglycerin 2% oint pkt TOPIC SCH ×2 (08:47→18:05)
--- NOTE | 2019-11-19 08:48 | NUR ---
NURSE NOTES: Nitro-bid patchy and Metoprolol held since patient is yoko 50's.
--- NOTE | 2019-11-19 09:05 | General Progress Note ---
Assessment/Plan Assessment/Plan: neck pain and radiculopathy herniation C56,67 Anterior cervical discectomy and fusion of C56 and C67 NSTEMI elevated troponin abnormal ECG hypertension PLAN cardiology noted nitrates and beta blockers no cath per cardiology anticoag when safe serial troponins and ECG noted echo repeat for change transfer to tele medications/laboratory data/nursing notes/ICU care reviewed in detail note reviewed and edited care discussed with RN and RT ICU time spent >40 minutes Subjective Allergies: Coded Allergies: No Known Allergies (Unverified , 11/16/19) Subjective stable overnight troponin + trending down ECG noted Objective Last 24 Hour Vital Signs Date Time Temp Pulse Resp B/P (MAP) Pulse Ox O2 Delivery O2 Flow Rate FiO2 11/19/19 08:00 Nasal Cannula 2.0 11/19/19 08:00 97.8 51 15 99/61 (74) 99 11/19/19 07:00 56 15 138/78 (98) 100 11/19/19 06:00 58 15 153/80 (104) 99 11/19/19 05:00 54 14 139/76 (97) 98 11/19/19 04:55 98.7 11/19/19 04:00 Nasal Cannula 2.0 11/19/19 04:00 97.8 55 13 131/73 (92) 99 11/19/19 04:00 54 11/19/19 03:00 59 16 126/72 (90) 98 11/19/19 02:00 57 14 117/65 (82) 98 11/19/19 01:00 68 16 124/71 (88) 99 11/19/19 00:00 Nasal Cannula 2.0 11/19/19 00:00 57 11/19/19 00:00 98.7 57 13 118/68 (85) 97 11/18/19 23:01 57 11/18/19 23:00 58 14 118/67 (84) 99 11/18/19 22:00 57 15 131/72 (91) 98 11/18/19 21:00 58 113/67 11/18/19 21:00 60 13 137/88 (104) 99 11/18/19 20:00 71 11/18/19 20:00 98.0 60 17 149/87 (107) 98 11/18/19 20:00 Nasal Cannula 2.0 11/18/19 19:00 65 15 113/67 (82) 97 11/18/19 18:00 66 14 128/78 (95) 99 11/18/19 17:00 60 17 123/66 (85) 98 11/18/19 16:00 67 18 133/87 (102) 98 11/18/19 16:00 Nasal Cannula 2.0 11/18/19 15:23 73 11/18/19 15:15 98.6 68 20 122/72 (89) 99 11/18/19 13:00 76 18 133/81 (98) 100 11/18/19 12:00 98.5 57 18 123/81 (95) 100 11/18/19 12:00 Nasal Cannula 2.0 11/18/19 11:28 62 11/18/19 11:00 62 16 120/65 (83) 98 11/18/19 10:00 68 17 120/65 (83) 98 Intake and Output 11/18/19 11/19/19 19:00 07:00 Intake Total 1450 ml 1497 ml Output Total 600 ml 1400 ml Balance 850 ml 97 ml Intake Oral 450 ml 300 ml IV Total 1000 ml 1197 ml Output Urine Total 600 ml 1400 ml Laboratory Tests 11/18/19 12:15: White Blood Count 9.0, Red Blood Count 4.21, Hemoglobin 12.9, Hematocrit 39.4, Mean Corpuscular Volume 94, Mean Corpuscular Hemoglobin 30.6, Mean Corpuscular Hemoglobin Concent 32.7, Red Cell Distribution Width 12.6, Platelet Count 203, Mean Platelet Volume 6.8, Neutrophils (%) (Auto) 73.1, Lymphocytes (%) (Auto) 20.5, Monocytes (%) (Auto) 5.5, Eosinophils (%) (Auto) 0.3, Basophils (%) (Auto ) 0.6, Sodium Level 143, Potassium Level 3.9, Chloride Level 109H, Carbon Dioxide Level 25, Anion Gap 9, Blood Urea Nitrogen 15, Creatinine 0.8, Estimat Glomerular Filtration Rate > 60, Glucose Level 98, Calcium Level 8.3L, Troponin I 1.870H 11/18/19 19:50: Troponin I 1.571H 11/19/19 04:04: Troponin I 1.228H Height (Feet): 5 Height (Inches): 0.00 Weight (Pounds): 218 Objective WDWN NAD clear breath sounds bilaterally without rhonchi or wheeze [id number] without MRG NABS nontender no HSM no CCE nonfocal Keegan Reich MD Nov 19, 2019 09:05
--- NOTE | 2019-11-19 09:20 | NUR ---
NURSE NOTES: Dr Reich here to see the patient. Updated him with patients' current condition. Order received, noted, and carried out.
--- NOTE | 2019-11-19 10:43 | NUR ---
NURSE NOTES: Dr Hidalgo here to see the patient. Updated him with patient's current condition. No new orders.
[2019-11-19] MEDS ORDERED: Nitroglycerin Subl 0.4mg tab SL PRN (11:20)
[2019-11-19] MEDS ORDERED: Milk of Magnesia 30ml Ud ORAL PRN (11:30)
[2019-11-19] MEDS ORDERED: HYDROcodone/Acetamin 5/325 tab ORAL PRN (11:30)
[2019-11-19] MEDS ORDERED: HYDROcodone/Acetamin 7.5/325 tab ORAL PRN ×2 (11:30)
[2019-11-19] MEDS ORDERED: Morphine Sulfate 4mg/ml Inj (IV USE ONLY) IV PRN ×2 (11:30→12:00)
[2019-11-19] MEDS ORDERED: Naloxone 0.4mg/ml Inj IVP PRN (11:30)
[2019-11-19] MEDS ORDERED: Chloraseptic Spray 20mL Bottle ORAL PRN (11:30)
[2019-11-19] MEDS ORDERED: Metoclopramide 10mg/2ml Inj IVP PRN (11:30)
[2019-11-19] MEDS ORDERED: Morphine Sulfate 2mg/ml Inj(IV/IM USE ONLY) IV PRN (12:00)
[2019-11-19] MEDS ORDERED: HYDROmorphone 1mg/ml Carpuject IVP PRN (12:00)
[2019-11-19] MEDS ORDERED: NS w/KCl 20mEq 1000ml 1,000 ML IV SCH (12:00)
--- NOTE | 2019-11-19 12:00 | NUR ---
TRANSFER TO FLOOR: Patient transferred to [facility], . Report given to JOSEPH Muniz. Belongings and medications given to Cristy. Family is stable and alert at the time of transfer.
--- NOTE | 2019-11-19 19:45 | NUR ---
HAND-OFF: Report given to Vance RN. Patient stable. Plan of care endorsed.
--- NOTE | 2019-11-19 19:47 | NUR ---
NURSE NOTES: Pt received from JOSEPH Torres alert and oriented x4, primarily Belizean-speaking on 2L NC, with no acute s/s of distress noted. IV site asymptomatic and patent on R hand 22g, saline lock. Bed in lowest position, call light and belongings within reach. Addendum: 11/19/19 at 2055 by Vance Chua RN Surgical site on anterior neck intact and dry - dermabond noted on site.
[2019-11-19] MEDS: Atorvastatin 80mg tab ORAL SCH (20:39)
[2019-11-19] MEDS ORDERED: Gadavist 7.5mMol/7.5ml vial IV PRN (22:15)
--- NOTE | 2019-11-19 22:38 | Cardiology Progress Note ---
Assessment/Plan Assessment/Plan 1. NSTEMI, likely involving LCx territory given new deep symmetrical TW inversion, on no antiplatelet or anticoag therapy due to cervical spine diskectomy done on November 16. Currently stable, CP free, continue to monitor hemodynamics, trop down to 1.2, continues to downtrend. Cath is deferred, awaiting transfer to [facility], bed not avialable at this time, htere was no indication cecy emergent cath having spoken with Dr. Mcnulty at [facility].2D echo shows no wall motion abnormalities with LVEF at 65% 2. Moderate pulmonary HTN, ? LUCI. 3. s/p anterior cervical spine diskectomy and fusion, POD #2, stable, MRI of CS shows no epidural hematoma. Subjective Subjective Sinus bradycardia at rate of 56. Objective Last 24 Hour Vital Signs Date Time Temp Pulse Resp B/P (MAP) Pulse Ox O2 Delivery O2 Flow Rate FiO2 11/19/19 21:00 Nasal Cannula 2.0 11/19/19 20:53 56 150/86 11/19/19 20:00 97.7 56 15 150/86 (107) 97 11/19/19 18:05 154/92 11/19/19 16:00 96.4 71 18 154/92 (112) 97 11/19/19 16:00 73 11/19/19 16:00 Nasal Cannula 2.0 11/19/19 12:00 Nasal Cannula 2.0 11/19/19 12:00 61 11/19/19 11:17 63 11/19/19 11:00 67 19 145/81 (102) 99 11/19/19 10:00 65 16 149/82 (104) 98 11/19/19 09:00 66 16 150/82 (104) 98 11/19/19 08:00 Nasal Cannula 2.0 11/19/19 08:00 97.8 51 15 99/61 (74) 99 11/19/19 07:20 60 11/19/19 07:00 56 15 138/78 (98) 100 11/19/19 06:00 58 15 153/80 (104) 99 11/19/19 05:00 54 14 139/76 (97) 98 11/19/19 04:55 98.7 11/19/19 04:00 Nasal Cannula 2.0 11/19/19 04:00 97.8 55 13 131/73 (92) 99 11/19/19 04:00 54 11/19/19 03:00 59 16 126/72 (90) 98 11/19/19 02:00 57 14 117/65 (82) 98 11/19/19 01:00 68 16 124/71 (88) 99 11/19/19 00:00 Nasal Cannula 2.0 11/19/19 00:00 57 11/19/19 00:00 98.7 57 13 118/68 (85) 97 11/18/19 23:01 57 11/18/19 23:00 58 14 118/67 (84) 99 Intake and Output 11/18/19 11/19/19 19:00 07:00 Intake Total 1450 ml 1497 ml Output Total 600 ml 1400 ml Balance 850 ml 97 ml Intake Oral 450 ml 300 ml IV Total 1000 ml 1197 ml Output Urine Total 600 ml 1400 ml 2D Echo: LVEF 65%, Mild LAE, Moderate MR, RVSP 49 mmHg, diastolic fxn not assessed Laboratory Tests Test 11/19/19 04:04 Troponin I 1.228 ng/mL (0.000-0.056) Objective HEENT: Atraumatic and normocephalic. Anicteric. Pupils are equal, round, and reactive to light and accommodation. Extraocular muscles intact. NECK: JVP less than 5 cm. No carotid bruit. Carotid upstrokes 2+ bilaterally. CARDIOVASCULAR: Normal S1 and S2. Bradycardic. Regular rate and rhythm. No murmurs, gallops, or rubs. PMI is at fourth intercostal space in the midclavicular line. LUNGS: Clear to auscultation bilaterally. ABDOMEN: Soft, nontender, and nondistended. No hepatosplenomegaly. Positive bowel sounds. EXTREMITIES: No evidence of edema, clubbing, or cyanosis. Monroe Herbert MD Nov 19, 2019 22:38
--- NOTE | 2019-11-19 22:40 | NUR ---
NURSE NOTES: Received call from Dr. Herbert, updated on patient's cardiac rhythm and status - Sinus Bradycardia (59). Per Dr. Herbert, please do updated stat EKG.
--- NOTE | 2019-11-19 22:47 | NUR ---
NURSE NOTES: EKG done, placed in chart. Sinus Bradycardia (59). Sent to Dr. Herbert, no new orders given.
[2019-11-20] VITALS: BP 104/62
[2019-11-20 04:00] VITALS: BP 118/70
--- NOTE | 2019-11-20 06:10 | NUR ---
NURSE NOTES: Received call from [facility] and spoke with Cathleen who stated that there is no available beds yet. Per Cathleen, she will speak to Dr. Herbert to confirm the urgency of cardiac cath. Will call to update later on today if there are any changes.
--- NOTE | 2019-11-20 07:20 | NUR ---
HAND-OFF: Report given to JOSEPH Torres. Plan of care endorsed.
--- NOTE | 2019-11-20 07:41 | General Progress Note ---
Assessment/Plan Assessment/Plan: neck pain and radiculopathy herniation C56,67 Anterior cervical discectomy and fusion of C56 and C67 NSTEMI elevated troponin abnormal ECG hypertension PLAN cardiology noted nitrates and beta blockers no cath per cardiology anticoag when safe serial troponins and ECG noted consider transfer to [facility] impression, plan, and exam edited and reviewed in detail care discussed with RN Subjective Allergies: Coded Allergies: No Known Allergies (Unverified , 11/16/19) Subjective stable overnight troponin + trending down ECG noted echo normal Objective Last 24 Hour Vital Signs Date Time Temp Pulse Resp B/P (MAP) Pulse Ox O2 Delivery O2 Flow Rate FiO2 11/20/19 04:00 55 11/20/19 04:00 97.9 62 16 118/70 (86) 97 11/20/19 00:00 61 11/20/19 00:00 97.5 59 17 104/62 (76) 97 11/19/19 21:00 Nasal Cannula 2.0 11/19/19 20:53 56 150/86 11/19/19 20:00 61 11/19/19 20:00 97.7 56 15 150/86 (107) 97 11/19/19 18:05 154/92 11/19/19 16:00 96.4 71 18 154/92 (112) 97 11/19/19 16:00 73 11/19/19 16:00 Nasal Cannula 2.0 11/19/19 12:00 Nasal Cannula 2.0 11/19/19 12:00 61 11/19/19 11:17 63 11/19/19 11:00 67 19 145/81 (102) 99 11/19/19 10:00 65 16 149/82 (104) 98 11/19/19 09:00 66 16 150/82 (104) 98 11/19/19 08:00 Nasal Cannula 2.0 11/19/19 08:00 97.8 51 15 99/61 (74) 99 Intake and Output 11/19/19 11/20/19 19:00 07:00 Intake Total 964 ml 240 ml Output Total 1000 ml Balance -36 ml 240 ml Intake Oral 540 ml 240 ml IV Total 424 ml Output Urine Total 1000 ml # Voids 1 2 # Bowel Movements 1 Laboratory Tests 11/20/19 06:00: Troponin I [Pending] Height (Feet): 5 Height (Inches): 0.00 Weight (Pounds): 217 Objective WDWN NAD clear breath sounds bilaterally without rhonchi or wheeze [id number] without MRG NABS nontender no HSM no CCE nonfocal Keegan Reich MD Nov 20, 2019 07:41
[2019-11-20 08:00] VITALS: BP 123/80
--- NOTE | 2019-11-20 08:02 | NUR ---
NURSE NOTES: Patient received from Vance RN. Patient stable AOx4 eating breakfast with no complaints and no s/sx of pain or distress. RR even and unlabored RA. Side rails upx2, call light within reach. bed low and locked. Will continue to monitor.
--- NOTE | 2019-11-20 09:00 | NUR ---
NURSE NOTES: Dr. Herbert notified of troponin level. No new orders.
[2019-11-20] MEDS: Docusate Sod/Senna tab ORAL SCH ×2 (09:09→18:09)
[2019-11-20] MEDS: Nitroglycerin 2% oint pkt TOPIC SCH ×2 (09:09→18:09)
[2019-11-20] MEDS: Docusate 100mg cap ORAL SCH ×2 (09:09→18:09)
--- NOTE | 2019-11-20 10:17 | NUR ---
CASE MANAGEMENT:REVIEW 11/20/19 SI: POD #4. 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
[2019-11-20 12:00] VITALS: BP 149/85
--- NOTE | 2019-11-20 13:00 | NUR ---
NURSE NOTES: Dr. Herbert notified of troponin level. No new orders.
--- NOTE | 2019-11-20 13:46 | NUR ---
TRANSFER UPDATE CALLED [facility] AND SPOKE WITH LAKSHMI WHO STATED PATIENT HAS NOT BEEN ACCEPTED D/T FINANCIAL'S DR DOMÍNGUEZ AND DR OH UPDATED INSTRUCTED BY DR DOMÍNGUEZ TO REFER PATIENT TO [facility] FOR CARDIAC CATH CLINICALS FAXED TO FENCE SETTER AT [facility] CALLED AND SPOKE WITH FENCE SETTER,ROSALIA. SHE WILL CALL BACK WITH A DECISION Addendum: 11/20/19 at 1551 by JORGE MORSE, SCALE EXPERT SCALE EXPERT LINDSAY REQUESTED PATIENT'S INSURANCE INFORMATION FAXED MCAL INFORMATION TO FENCE SETTER,ROSALIA. SINCE PATIENT'S MCAL IS CONTROLLED BY [facility] LINDSAY IS REQUESTING WE OBTAIN AUTHORIZATION. REACHED OUT TO [facility] AND SPOKE WITH STACY T:[phone] STACY IS WORKING ON THE AUTHORIZATION FOR TRANSFER TO HIGHER LEVEL OF CARE. PROVIDED STACY WITH PHONE AND FAX NUMBER TO [facility] FENCE SETTER, NUMBER TO NURSES STATION AND NUMBER TO DIRECTOR OF CASE MANAGEMENT STACY Brand; [phone] [facility] FENCE SETTER T: [phone]
[2019-11-20 16:00] VITALS: BP 120/73
--- NOTE | 2019-11-20 17:00 | NUR ---
NURSE NOTES: Dr. Herbert notified that daughter Mireille wanted to speak with him. Dr. Herbert called and spoke with daughter for about 40min and discussed diagnosis and plan of treatment.
--- NOTE | 2019-11-20 17:29 | NUR ---
TE[employer]NICIAN [employer] NOTES SPOKE WITH PT'S DAUGHTER MOSES,UPDATED ON TRANSFER. PENDING AUTHORIZATION FROM [facility].
--- NOTE | 2019-11-20 19:18 | NUR ---
NURSE NOTES: Received report from JOSEPH Torres. Patient is awake, alert and oriented x 4, Surinamese speaking. Patient is on room air, saturating 95% with no shortness of breath reported. monitoring and evaluation advisor is in placed, shows sinus rhythm at this time, with no chest pain noted. IV site is on left hand G-22 saline lock that is patent and intact. Safety measures are in placed, bed in lowest and locked position, side rails up x 2. Call light button and bedside table within reach, will continue plan of care.
--- NOTE | 2019-11-20 19:19 | NUR ---
HAND-OFF: Report given to Linsey RUIZ. Patient stable. Plan of care endorsed.
--- NOTE | 2019-11-20 19:42 | Cardiology Progress Note ---
Assessment/Plan Assessment/Plan 1. NSTEMI, likely involving LCx territory given new deep symmetrical TW inversion, on no antiplatelet or anticoag therapy due to cervical spine diskectomy done on November 16. Currently stable, CP free, continue to monitor hemodynamics, trop down to 0.7, continues to downtrend. Stephany declined the transfer, awaiting financial clearance from [facility], htere was no indication cecy emergent cath having spoken with Dr. Mcnulty at [facility] on November 16. 2D echo shows no wall motion abnormalities with LVEF at 65%. Continue metoprolol and atorvastatin 80. May start ASA 81mg once clear from neurosurgery. 2. Moderate pulmonary HTN, ? LUCI. 3. s/p anterior cervical spine diskectomy and fusion, POD #3, stable, MRI of CS shows no epidural hematoma. Subjective Subjective Sinus bradycardia at rate of 53. Objective Last 24 Hour Vital Signs Date Time Temp Pulse Resp B/P (MAP) Pulse Ox O2 Delivery O2 Flow Rate FiO2 11/20/19 18:09 120/73 11/20/19 16:00 53 11/20/19 16:00 98.4 60 19 120/73 (89) 98 11/20/19 12:00 52 11/20/19 12:00 97.5 52 20 149/85 (106) 99 11/20/19 09:09 123/80 11/20/19 09:09 73 123/80 11/20/19 09:00 Nasal Cannula 2.0 11/20/19 08:00 73 11/20/19 08:00 97.9 73 20 123/80 (94) 97 11/20/19 04:00 55 11/20/19 04:00 97.9 62 16 118/70 (86) 97 11/20/19 00:00 61 11/20/19 00:00 97.5 59 17 104/62 (76) 97 11/19/19 21:00 Nasal Cannula 2.0 11/19/19 20:53 56 150/86 11/19/19 20:00 61 11/19/19 20:00 97.7 56 15 150/86 (107) 97 Intake and Output 11/19/19 11/20/19 19:00 07:00 Intake Total 964 ml 240 ml Output Total 1000 ml Balance -36 ml 240 ml Intake Oral 540 ml 240 ml IV Total 424 ml Output Urine Total 1000 ml # Voids 1 2 # Bowel Movements 1 2D Echo: LVEF 65%, Mild LAE, Moderate MR, RVSP 49 mmHg, diastolic fxn not assessed Laboratory Tests Test 11/20/19 06:00 11/20/19 11:55 Troponin I 0.768 ng/mL (0.000-0.056) 0.708 ng/mL (0.000-0.056) Objective HEENT: Atraumatic and normocephalic. Anicteric. Pupils are equal, round, and reactive to light and accommodation. Extraocular muscles intact. NECK: JVP less than 5 cm. No carotid bruit. Carotid upstrokes 2+ bilaterally. CARDIOVASCULAR: Normal S1 and S2. Bradycardic. Regular rate and rhythm. No murmurs, gallops, or rubs. PMI is at fourth intercostal space in the midclavicular line. LUNGS: Clear to auscultation bilaterally. ABDOMEN: Soft, nontender, and nondistended. No hepatosplenomegaly. Positive bowel sounds. EXTREMITIES: No evidence of edema, clubbing, or cyanosis. Monroe Herbert MD Nov 20, 2019 19:42
[2019-11-20 20:00] VITALS: BP 132/76
--- NOTE | 2019-11-20 21:30 | NUR ---
NURSE NOTES: Received patient in bed, awake, alert, oriented x4, able to make her needs known, ambulates with the use of the walker. IV site is clean dry and intact, call light is within reach, bed is lowered, locked, alarm is on. Will continue to monitor for comfort and safety.
[2019-11-20] MEDS: Atorvastatin 80mg tab ORAL SCH (22:14)
[2019-11-21] VITALS: BP 120/77
[2019-11-21 04:00] VITALS: BP 127/78
--- NOTE | 2019-11-21 07:40 | NUR ---
NURSE NOTES: Received report from JOSEPH Evans. Patient is awake, alert and oriented x 4, Tajik speaking but able to understand and communicate in [place]ralt[place] well. Ambulates with a walker. On monitoring manager is in placed. Able to utilize IS w/a 10x. IV site is on left hand G-22 saline lock that is patent and intact. tolerating food intake well. No N/V noted. surgical drsg dry and intact. applied ice pack. Safety measures are in placed, bed in lowest and locked position, side rails up x 2. Call light is within reach, will continue plan of care.
[2019-11-21 08:00] VITALS: BP 113/68
[2019-11-21] MEDS: Docusate 100mg cap ORAL SCH (08:23)
[2019-11-21] MEDS: Docusate Sod/Senna tab ORAL SCH (08:23)
[2019-11-21] MEDS: Nitroglycerin 2% oint pkt TOPIC SCH (08:25)
--- NOTE | 2019-11-21 11:54 | NUR ---
NURSE NOTES: INFORMED DR HO REGARDING PATIENT'S SYNTHROID AND OMEPRAZOLE FROM HOME. IF HE WANTS TO CONTINUE THEM. AWAITING FOR A CALL BACK. WILL CONT TO MONITOR.
--- NOTE | 2019-11-21 11:57 | NUR ---
CASE MANAGEMENT:REVIEW 11/21/19 SI: POD #5. 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
[2019-11-21 12:00] VITALS: BP 127/79
--- NOTE | 2019-11-21 12:02 | NUR ---
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
--- NOTE | 2019-11-21 12:14 | NUR ---
NURSE NOTES: per CM pt has a bed at [facility], notified Dr Reich and received order.
--- NOTE | 2019-11-21 12:39 | General Progress Note ---
Assessment/Plan Assessment/Plan: neck pain and radiculopathy herniation C56,67 Anterior cervical discectomy and fusion of C56 and C67 NSTEMI elevated troponin abnormal ECG hypertension PLAN cardiology noted nitrates and beta blockers transfer for Cath impression, plan, and exam edited and reviewed in detail care discussed with RN Subjective Allergies: Coded Allergies: No Known Allergies (Unverified , 11/16/19) Subjective stable overnight troponin + trending down ECG noted accepted at [facility] Objective Last 24 Hour Vital Signs Date Time Temp Pulse Resp B/P (MAP) Pulse Ox O2 Delivery O2 Flow Rate FiO2 11/21/19 09:00 Room Air 11/21/19 08:25 113/68 11/21/19 08:25 64 113/68 11/21/19 08:00 97.7 64 20 113/68 (83) 96 11/21/19 08:00 55 11/21/19 04:00 53 11/21/19 04:00 98.4 74 18 127/78 (94) 98 11/21/19 00:00 97.9 60 19 120/77 (91) 94 11/21/19 00:00 53 11/20/19 22:24 Nasal Cannula 2.0 11/20/19 22:15 78 148/78 11/20/19 20:00 99.1 58 19 132/76 (94) 95 11/20/19 20:00 55 11/20/19 18:09 120/73 11/20/19 16:00 53 11/20/19 16:00 98.4 60 19 120/73 (89) 98 Intake and Output 11/20/19 11/21/19 19:00 07:00 Intake Total 600 ml Output Total 700 ml Balance -100 ml Intake Oral 600 ml Output Urine Total 700 ml # Voids 3 Height (Feet): 5 Height (Inches): 0.00 Weight (Pounds): 217 Objective WDWN NAD clear breath sounds bilaterally without rhonchi or wheeze [id number] without MRG NABS nontender no HSM no CCE nonfocal Keegan Reich MD Nov 21, 2019 12:39
--- NOTE | 2019-11-21 13:30 | NUR ---
NURSE NOTES: REPORT GIVEN TO GEMMA @ [facility]. WILL CONT TO MONITOR.
--- NOTE | 2019-11-21 13:36 | NUR ---
NURSE NOTES: KATHERINE PATEL CM ETA FOR [facility] @ 1530H [facility]. WILL CONT TO MONITOR.
--- NOTE | 2019-11-21 13:45 | NUR ---
AMBULANCE TRANSPORT AMBULANCE TRANSPORT HAS BEEN CHANGED BY "[facility] THE CAR" TO [facility] WITH LOGISTIC MANAGER TIME OF 1530 BEDSIDE NURSE HAS BEEN UPDATED
--- NOTE | 2019-11-21 14:49 | NUR ---
NURSE NOTES: spoke with DR HAMM regarding patient synthroid and plaquenil. will give to the patient prior discharge. will cont to monitor.
[2019-11-21 16:00] VITALS: BP 139/79
--- NOTE | 2019-11-21 16:17 | NUR ---
NURSE NOTES: YOGESH PATEL CM REGARDING [facility] HAS NOT ARRIVED FOR ETA 1530. AWAITING FOR A RESPONSE.
--- NOTE | 2019-11-21 17:33 | NUR ---
NURSE NOTES: D/C TO [facility] WITH AN IV HEPLOCK. INSTRUCTED AMBULANCE PERSONNEL TO STOP BY @ [facility] TO HAVE RAPID COVID PER CN, FE. PATIENT CONSUMED 80% DINNER. NO ACUTE CARDIO-RESP DISTRESS NOTED. PERSONAL BELONGINGS NOTED. REPORT GIVEN TO JOSEPH MENENDEZ @ [facility].
--- NOTE | 2019-11-21 20:14 | Cardiology Progress Note ---
Assessment/Plan Assessment/Plan 1. NSTEMI, likely involving LCx territory given new deep symmetrical TW inversion, on no antiplatelet or anticoag therapy due to cervical spine diskectomy done on November 16. Currently stable, CP free, continue to monitor hemodynamics, trop down to 0.7, continues to downtrend. Accepted for transfer to [facility]. 2D echo shows no wall motion abnormalities with LVEF at 65%. Continue metoprolol and atorvastatin 80. Will start ASA 81mg. 2. Moderate pulmonary HTN, ? LUCI. 3. s/p anterior cervical spine diskectomy and fusion, stable, MRI of CS shows no epidural hematoma. Subjective Subjective Sinus bradycardia at rate of 57. Objective Last 24 Hour Vital Signs Date Time Temp Pulse Resp B/P (MAP) Pulse Ox O2 Delivery O2 Flow Rate FiO2 11/21/19 16:00 99.3 57 20 139/79 (99) 96 11/21/19 12:00 55 11/21/19 12:00 97.5 55 18 127/79 (95) 97 11/21/19 09:00 Room Air 11/21/19 08:25 113/68 11/21/19 08:25 64 113/68 11/21/19 08:00 97.7 64 20 113/68 (83) 96 11/21/19 08:00 55 11/21/19 04:00 53 11/21/19 04:00 98.4 74 18 127/78 (94) 98 11/21/19 00:00 97.9 60 19 120/77 (91) 94 11/21/19 00:00 53 11/20/19 22:24 Nasal Cannula 2.0 11/20/19 22:15 78 148/78 Intake and Output 11/20/19 11/21/19 19:00 07:00 Intake Total 600 ml Output Total 700 ml Balance -100 ml Intake Oral 600 ml Output Urine Total 700 ml # Voids 3 2D Echo: LVEF 65%, Mild LAE, Moderate MR, RVSP 49 mmHg, diastolic fxn not assessed Objective HEENT: Atraumatic and normocephalic. Anicteric. Pupils are equal, round, and reactive to light and accommodation. Extraocular muscles intact. NECK: JVP less than 5 cm. No carotid bruit. Carotid upstrokes 2+ bilaterally. CARDIOVASCULAR: Normal S1 and S2. Bradycardic. Regular rate and rhythm. No murmurs, gallops, or rubs. PMI is at fourth intercostal space in the midclavicular line. LUNGS: Clear to auscultation bilaterally. ABDOMEN: Soft, nontender, and nondistended. No hepatosplenomegaly. Positive bowel sounds. EXTREMITIES: No evidence of edema, clubbing, or cyanosis. Monroe Herbert MD Nov 21, 2019 20:14
--- NOTE | 2019-11-27 18:06 | Diagnostic Imaging Report ---
XRAY C Spine 2-3v CLINICAL HISTORY: Neck pain. Cervical fusion. COMPARISON: None FINDINGS: Fluoroscopy independent procedure performed for cervical fusion. 26.6 seconds of fluoroscopy time utilized by the ordering physician. Total cumulative dose is 4.46 mGy and 0.82709 Gy.cm2. Total of 5 spot images are obtained . IMPRESSION: FLUOROSCOPY GUIDED PROCEDURE.
== END 2019-11-21 17:30 | disposition critical access hospital, planned readmission (94) | DRG 471 ==
LOC: SDSOVERFLO 11-16 05:20 → 3E 11-16 11:15 → 2E 11-17 17:56 → ICU 11-17 19:30 → 2E 11-19 12:00
PROC: 4A11X4G Monitoring of Peripheral Nervous Electrical Activity, Intraoperative, External Approach (ICD-10-PCS; principal; 2019-11-16 07:00)
PROC: 0RG2070 Fusion of 2 or more Cervical Vertebral Joints with Autologous Tissue Substitute, Anterior Approach, Anterior Column, Open Approach (ICD-10-PCS; principal; 2019-11-16 07:00)
PROC: 0RG20A0 Fusion of 2 or more Cervical Vertebral Joints with Interbody Fusion Device, Anterior Approach, Anterior Column, Open Approach (ICD-10-PCS; principal; 2019-11-16 07:00)
PROC: 0RT30ZZ Resection of Cervical Vertebral Disc, Open Approach (ICD-10-PCS; principal; 2019-11-16 07:00)
DX: M48.02 Spinal stenosis, cervical region (principal); I21.4 Non-ST elevation (NSTEMI) myocardial infarction; M50.122 Cervical disc disorder at C5-C6 level with radiculopathy; I10 Essential (primary) hypertension; E03.9 Hypothyroidism, unspecified; I27.20 Pulmonary hypertension, unspecified
CPT/HCPCS: 36415; 72040; 72156; 76000; 80048; 84484; 85025; 86850; 86900; 86901; 87081; 93005; 93306; 94003; 94150; A9585; C9399; J2250; J2370; J2405; J2710; J7030